=== PATIENT | female | born 1960 | race Caucasian/White ===

== ENCOUNTER → 2024-01-24 13:02 | Outpatient (REF) | payer BC, SELFPAY | LOC: WDC 13:02 | PROVIDERS: ATTENDING PHYSICIAN Student in an Organized Health Care Education/Training Program | DX: Z12.31 Encounter for screening mammogram for malignant neoplasm of breast (principal) | CPT/HCPCS: 77063; 77067 ==

== ENCOUNTER → 2024-04-20 12:21 | Outpatient (REF) | payer BC, SELFPAY | LOC: RAD 12:21 | PROVIDERS: ATTENDING PHYSICIAN Student in an Organized Health Care Education/Training Program | DX: M25.532 Pain in left wrist (principal) | CPT/HCPCS: 73110 ==

== ENCOUNTER → 2024-04-20 13:17 | Outpatient (REF) | payer BC, SELFPAY | LOC: HWRAD 13:17 | PROVIDERS: ATTENDING PHYSICIAN Student in an Organized Health Care Education/Training Program | DX: M85.80 Other specified disorders of bone density and structure, unspecified site (principal) | CPT/HCPCS: 77080 ==

== ENCOUNTER → 2024-05-15 08:06 | Outpatient (REF) | payer BC, SELFPAY | LOC: EMG 08:06 | PROVIDERS: ATTENDING PHYSICIAN Student in an Organized Health Care Education/Training Program | DX: G62.9 Polyneuropathy, unspecified (principal); R20.0 Anesthesia of skin | CPT/HCPCS: 95886; 95911 ==

== ENCOUNTER → 2025-01-24 14:08 | Outpatient (REF) | payer BC, SELFPAY | LOC: WDC 14:08 | PROVIDERS: ATTENDING PHYSICIAN Student in an Organized Health Care Education/Training Program | DX: Z12.31 Encounter for screening mammogram for malignant neoplasm of breast (principal) | CPT/HCPCS: 77063; 77067 ==

== ENCOUNTER → 2025-07-05 13:09 | Outpatient (REF) | payer BC, SELFPAY | LOC: WDC 13:09 | PROVIDERS: ATTENDING PHYSICIAN Student in an Organized Health Care Education/Training Program | DX: R92.30 Dense breasts, unspecified (principal) | CPT/HCPCS: 76641 ==